=== PATIENT | female | born 1980 | race African-American/Black ===

== ENCOUNTER 2022-02-08 13:43 | Emergency (ER) | payer BC, MEDICARE ==
[~2022-02-08] VITALS: Ht 154.9 cm; Wt 55.3 kg
[~2022-02-08 13:43] MED LIST: ALBU0.0939 IH; FAMO-90 PO
--- NOTE | 2022-02-08 13:45 | NUR ---
BIBA to bed 10
--- NOTE | 2022-02-08 13:50 | NUR ---
Dr. Lu evaluating patient at bedside
[2022-02-08 13:55] VITALS: BP 112/76
--- NOTE | 2022-02-08 13:59 | NUR ---
41 y/o F BIBA found in front of [facility] for overdose. Pt GCS 1-1-1 apneic, hypoxic, pinpoint pupils. Per EMS, bystander gave pt Narcan 4mg IN; EMS/Fire gave additional Narcan 4mg IVP and Narcan 2mg IN. Pt now A&Ox4 c/o nausea/vomiting, fatigue. EMS admin Zofran 8mg IVP for pt vomiting. Pt placed onto panel monitor. Emesis bag at bedside. Bed locked in lowest position, side rails x 2 for pt safety. PMH: asthma Meds: Hernandez SUAREZ
--- NOTE | 2022-02-08 14:06 | NUR ---
EMT at bedside for EKG
[2022-02-08] MEDS: METOCLOPRAMIDE 10 MG/2 ML INJ VIAL IVP ONE (14:12)
--- NOTE | 2022-02-08 15:30 | NUR ---
Pt states + relief to nausea. Emesis bag in place. cardiac monitor technician remains in place; SpO2 99% on room air; RR 11.
[2022-02-08] MEDS ORDERED: NALO4SPR NS (17:31)
--- NOTE | 2022-02-08 17:39 | NUR ---
Pt resting in position of comfort. No nausea. tool keeper in place. Bed locked in lowest position, side rails x 2.
[2022-02-08 17:50] VITALS: BP 125/94
--- NOTE | 2022-02-08 17:50 | NUR ---
Patient discharged with v/s stable. Written and verbal after care instructions given and explained. Patient alert, oriented and verbalized understanding of instructions. Ambulatory with steady gait. All questions addressed prior to discharge. ID band removed. Patient advised to follow up with PMD. Rx of Narcan given. Patient educated on indication of medication including possible reaction and side effects. Opportunity to ask questions provided and answered.
== END 2022-02-08 17:50 | disposition home or self-care (01) ==
LOC: MED 13:43
DX: T40.2X1A Poisoning by other opioids, accidental (unintentional), initial encounter (principal); J45.909 Unspecified asthma, uncomplicated; Y92.89 Other specified places as the place of occurrence of the external cause
CPT/HCPCS: 71045; 93005; 96374; 99291; J2765